=== PATIENT | female | born 1940 | race African-American/Black ===

== ENCOUNTER 2021-11-12 17:58 | Inpatient (IN) | payer MEDICARE ==
[~2021-11-12] VITALS: Ht 162.6 cm; Wt 81.1 kg
--- NOTE | 2021-11-12 18:08 | PHYS DOC ---
General Adult EDM: Chief Complaint: MECHANICAL FALL HPI: HPI: Patient is a 81 year old female brought in by EMS from home for multiple complaints. She reports that she has been lying in bed for about 1 week. She reports that just under a week ago she fell out of a recliner chair at home. She has right and left hip pain, right worse than left. She has been unable to walk for about 1 week. She reports that she normally walks on her own without difficulty. She denies head injury or loss of conscious. She denies any headache, neck pain, back pain. She denies chest pain, dyspnea, palpitations. She denies focal weakness. She is diffusely weak. She reports that he lives with one of her daughters, and her daughter has been placing her on a bedpan to help her urinate and have bowel movements. She is currently very visibly soiled, has dried feces on her clothing and shirt. She reports that she did not come to the ER sooner because she did not feel like she had to, and she had been in communication with a brother that lives out of state, apparently this brother told her it takes a while for muscle to heal, so she was trying to wait it out. The patient reports that she has high blood pressure and takes medicine for glaucoma. She is unable to tell me who her doctor is. She reports that she does not usually see a primary care physician regularly. She reports that she has not been in the hospital since her children were born. Her children are all adults. She is a relatively poor historian. There is no family here currently to provide any extra history at this time. Review of Systems: Review of Systems: Constitutional: Denies fever or chills. [] Eyes: Chronic vision problems, no acute visual deficit, no complete vision loss HENT: Denies nasal congestion or sore throat. [] Respiratory: Denies cough or shortness of breath. [] Cardiovascular: Denies chest pain, palpitations. Denies syncope. GI: Denies abdominal pain, nausea, vomiting, or diarrhea : Urinary incontinence. Denies dysuria, gross hematuria Musculoskeletal: Denies back pain or joint pain. Denies back pain. Integument: Denies rash. [] Neurologic: Denies headache, focal weakness or sensory changes. She denies head injury. She denies loss of consciousness. She denies syncope. Reports generalized, nonfocal motor weakness. She denies numbness or tingling. She denies dizziness or vertigo symptoms. Psychiatric: Denies depression or anxiety. [] Heart Score: C/O Chest Pain: No Risk Factors: Risk Factors: DM, Current or recent (<one month) smoker, HTN, HLP, family history of CAD, obesity. Risk Scores: Score 0 - 3: 2.5% MACE over next 6 weeks - Discharge Home Score 4 - 6: 20.3% MACE over next 6 weeks - Admit for Clinical Observation Score 7 - 10: 72.7% MACE over next 6 weeks - Early Invasive Strategies Allergies: Allergies: Allergies Coded Allergies Type Severity Reaction Last Updated Verified No Known Drug Allergies 11/12/21 No Physical Exam: PE: Constitutional: Well developed, well nourished, no acute distress, non-toxic appearance. [] HENT: Normocephalic, atraumatic, oropharynx is patent and clear, mucous me mbranes are tacky. TMs are clear bilaterally. External ears are normal bilaterally. Nares are patent clear without rhinorrhea epistaxis. Evidence of facial or oral trauma. No evidence of facial contusion, swelling, erythema. Eyes: PERRL, EOMI, conjunctiva normal, no discharge. Bilateral corneal opacities, right greater than left. Neck: Normal range of motion, no tenderness, supple, no stridor. No midline tenderness or step-offs. No meningismus. Trachea is midline. No JVD. Cardiovascular: Tachycardic, irregularly irregular, +2 dorsalis pedis and +2 radial pulses. Rhythm appears to be consistent with atrial fibrillation with rapid ventricular response Lungs & Thorax: No evidence of chest or thorax trauma. Equal chest rise. Lungs are clear to auscultation without rales, rhonchi or wheezes. Mildly diminished in bilateral bases. No tachypnea. No stridor. No evidence of distress Abdomen: Abdomen is obese, soft, nondistended, nontender to palpation. No palpable masses organomegaly. No evidence of abdominal or flank trauma. No abdominal or flank ecchymoses. Skin: Warm, dry, skin is relatively unkempt, relatively poor skin turgor. There is an intact blister type lesion on her right anterior lower leg. This is nontender Back: Markedly limited range of motion of the spine. No deformity. No midline tenderness or step-offs. Extremities: Pelvis is stable. Bilateral, symmetric nonpitting lower extremity edema. There is a intact blister type lesion on her right mid anterior lower leg. There is no tenderness, warmth or erythema. Painful passive range of motion of bilateral hips, right greater than left. No palpable step-offs or deformity right anterior knee is tender with markedly limited range of motion with passive and active right knee flexion. No ligamentous laxity is noted. No calf tenderness is noted. There is dried feces on her feet. Her toenails are incredibly long, thickened and unkempt, overgrowing the skin on her toes. Neurologic: She is awake, alert, oriented x3. Cranial nerves II through XII grossly intact. Bilateral table hand strength normal and equal bilaterally. Sensation is grossly intact. She demonstrates diffuse, symmetric generalized motor weakness. Bilateral lower extremities demonstrate symmetric lower extremity weakness with no ability to hold her legs up against gravity. No foot drop. Normal plantar flexion and dorsiflexion of bilateral feet and ankles. Psychologic: She is somewhat anxious but she is pleasant and overall cooperative. EKG: EKG: EKG is interpreted at 1840 Rhythm is atrial fibrillation with RVR Rate is 148 bpm [place] is normal Occasional PVCs Nonspecific T wave abnormalities diffusely No STEMI Radiology/Procedures: Radiology/Procedures: IMAGING REPORT Signed PATIENT: MORA MONTES ACCOUNT: [id number] : 1940 LOCATION: ER AGE: 81 SEX: F EXAM STATUS: PRE ER ORD. PHYSICIAN: BONNIE JACK DO REASON: fall, weakness PROCEDURE: CT HEAD AND CERVICAL SPINE WO Exam: CT head and cervical spine INDICATION: Fall, weakness TECHNIQUE: Sequential axial images through the head and cervical spine were obtained without the administration of IV contrast. Exposure: One or more of the following in the visualized dose reduction techniques were utilized for this examination: 1. Automated exposure control 2. Adjustment of the MA and/or KV according to patient size 3. Use of iterative of reconstructive technique Comparisons: None FINDINGS: Head: No focal parenchymal lesion or hemorrhage is identified. There is no midline shift or sulcal effacement. Moderate patchy hypodensity in the periventricular white matter. No acute vascular territory infarction is identified. Almeida-white distinction is preserved. The ventricular system is within normal limits without compression hydrocephalus. The basal cisterns are well maintained. The visualized portions of the paranasal sinuses and mastoid air cells are well- pneumatized. No acute fractures. Cervical spine: Straightening of cervical spine which may positional. Vertebral body heights are well-maintained. Fracture to the cervical spine is not identified. Multilevel spondylotic change in cervical spine with degenerative disc disease in the cervical spine, greatest at C3-C4, C4-C5 and C5-C6. Visualized paraspinal soft tissues are unremarkable. IMPRESSION: 1. Moderate small vessel schema change, technically age indeterminate without recent prior imaging. 2. Negative CT C-spine for acute traumatic injury. Electronically signed by: Umang Barrios MD (11/12/2021 7:06 PM) [facility] DICTATED and SIGNED BY: UMANG BARRIOS MD DATE: 11/12/211901 IMAGING REPORT Signed PATIENT: SRIKANTH MONTES ACCOUNT: [id number] : 1940 LOCATION: ER AGE: 81 SEX: F EXAM STATUS: REG ER ORD. PHYSICIAN: BONNIE JACK DO REASON: pain, fall PROCEDURE: KNEE RIGHT 3V EXAMINATION: XR KNEE 3 VIEWS_RT CLINICAL HISTORY: Right knee pain following fall. TECHNIQUE: XR KNEE 3 VIEWS_RT COMPARISON: None FINDINGS/ IMPRESSION: Moderate medial compartment narrowing. Patellofemoral compartment narrowing, incompletely evaluated. Tricompartmental small marginal osteophytes. No acute fracture. No definite joint effusion on the oblique lateral image. Electronically signed by: Berto Lane DO (11/12/2021 8:20 PM) [facility] DICTATED and SIGNED BY: BERTO LANE DO DATE: 11/12/212018 IMAGING REPORT Signed PATIENT: SRIKANTH MONTES ACCOUNT: [id number] : 1940 LOCATION: ER AGE: 81 SEX: F EXAM STATUS: REG ER ORD. PHYSICIAN: BONNIE JACK DO REASON: fall, weakness PROCEDURE: PORTABLE CHEST 1V EXAMINATION: XR CHEST 1V CLINICAL HISTORY: Chest pain following fall, weakness. EXAM DATE/TIME: 11/12/2021 7:51 PM COMPARISON: None FINDINGS: Lines, Tubes, and Devices: None. Cardiomediastinal Silhouette: Cardiomegaly. Lungs and Pleura: No evidence of focal airspace consolidation or pleural effusion. Right parahilar opacities favor vascular markings. Pulmonary vasculature unremarkable. Elevation right hemidiaphragm. Bones and Soft Tissues: Degenerative changes in the thoracic spine. IMPRESSION: No evidence of acute cardiopulmonary abnormality. Cardiomegaly Electronically signed by: Berto Lane DO (11/12/2021 8:18 PM) [facility] DICTATED and SIGNED BY: BERTO LANE DO DATE: 11/12/212015 IMAGING REPORT Signed PATIENT: SRIKANTH MONTES ACCOUNT: [id number] : 1940 LOCATION: ER AGE: 81 SEX: F EXAM STATUS: REG ER ORD. PHYSICIAN: BONNIE JACK DO REASON: fall, weakness PROCEDURE: HIP RIGHT 2V WITH PELVIS EXAMINATION: XR RIGHT HIP (WITH OR WITHOUT PELVIS) 2 VIEWS CLINICAL HISTORY: Right hip pain following fall. TECHNIQUE: XR RIGHT HIP (WITH OR WITHOUT PELVIS) 2 VIEWS COMPARISON: None FINDINGS/ IMPRESSION: Joint space alignment maintained in the right hip. Left hip unremarkable on limited evaluation. Pubic symphysis and SI joints maintained. Partially visualized lumbar degenerative changes. No acute fracture. Vascular calcifications. Electronically signed by: Berto Lane DO (11/12/2021 8:19 PM) [facility] DICTATED and SIGNED BY: BERTO LANE DO DATE: 11/12/212017 Course & Med Decision Making: Course & Med Decision Making Pertinent Labs and Imaging studies reviewed. (See chart for details) The patient is given a total of 20 mg of IV of diltiazem. Heart rate modestly improved, she is still in A. fib with RVR. She is given a diltiazem drip. IV fentanyl given for pain. IV fluid boluses are given. She is given oral aspirin and subcu Lovenox. I discussed the findings, differential diagnosis and plan of care with her. I have recommended hospitalization, cardiology consultation, she will require social media director consultation, most likely rehab as well. She verbalizes understanding, she is comfortable with the plan of care. She is accepted for admission by Dr. Plunkett. Emerita Disclaimer: Emerita Disclaimer: This electronic medical record was generated, in whole or in part, using a voice recognition dictation system. Departure Departure Impression: Primary Impression: Generalized weakness Additional Impressions: Atrial fibrillation with rapid ventricular response Lactic acidosis Rhabdomyolysis Qualified Codes: T79.6XXA - Traumatic ischemia of muscle, initial encounter Disposition: ADMITTED INPATIENT Admitting Physician: SUSSY (Dr. Plunkett) Condition: GUARDED GUERO,BONNIE Starla DO Nov 12, 2021 18:08
[2021-11-12] MEDS ORDERED: IV NORMAL SALINE 1000ML BAG 1,000 ML IV ONE ×2 (18:30→19:45)
[2021-11-12] MEDS ORDERED: fentaNYL PF VIAL 100 MCG/2 ML VIAL IVP ONE (18:30)
[2021-11-12 18:51] LABS: BASO % 0 % (0-3); EOS % 0 % (0-3); HEMATOCRIT 39.8 % (36.0-47.0); LYMPH # 0.3 x10^3/uL (1.0-4.8); LYMPH % 3 % (24-48); MEAN CORPUSCULAR HEMOGLOBIN 30 pg (25-35); MEAN CORPUSCULAR HGB CONC 33 g/dL (31-37); MEAN CORPUSCULAR VOLUME 91 fL (79-100); MONO # 0.4 x10^3/uL (0.0-1.1); MONO % 4 % (0-9); NEUT % 93 % (31-73); PLATELET COUNT 222 x10^3/uL (140-400); RED BLOOD COUNT 4.37 x10^6/uL (3.50-5.40); RED CELL DISTRIBUTION WIDTH 15.4 % (11.5-14.5); WHITE BLOOD COUNT 10.7 x10^3/uL (4.0-11.0)
[2021-11-12 19:00] LABS: CALCIUM 9.6 mg/dL (8.5-10.1); GFR 53.5; POTASSIUM 3.4 mmol/L (3.5-5.1)
--- NOTE | 2021-11-12 19:08 | RAD ---
Exam: CT head and cervical spine INDICATION: Fall, weakness TECHNIQUE: Sequential axial images through the head and cervical spine were obtained without the admi nistration of IV contrast. Exposure: One or more of the following in the visualized dose reduction techniques were utilized for this examination: 1. Automated exposure control 2. Adjustment of the MA and/or KV according to patient size 3. Use of iterative of reconstructive technique Comparisons: None FINDINGS: Head: No focal parenchymal lesion or hemorrhage is identified. There is no midline shift or sulcal effaceme nt. Moderate patchy hypodensity in the periventricular white matter. No acute vascular territory infarcti on is identified. Almeida-white distinction is preserved. The ventricular system is within normal limits without compression hydrocephalus. The basal cisterns are well maintained. The visualized portions of the paranasal sinuses and mastoid air cells are well-pneumatized. No acute fractures. Cervical spine: Straightening of cervical spine which may positional. Vertebral body heights are well-maintained. Fracture to the cervical spine is not identified. Multilevel spondylotic change in cervical spine with degenerative disc disease in the cervical spine, greatest at C3-C4, C4-C5 and C5-C6. Visualized paraspinal soft tissues are unremarkable. IMPRESSION: 1. Moderate small vessel schema change, technically age indeterminate without recent prior imaging. 2. Negative CT C-spine for acute traumatic injury. Electronically signed by: Umang Lantigua MD (11/12/2021 7:06 PM) [facility]
[2021-11-12 19:16] LABS: ALBUMIN 3.1 g/dL (3.4-5.0); ALBUMIN/GLOBULIN RATIO 0.7 (1.0-1.7); MAGNESIUM 1.9 mg/dL (1.8-2.4); TOTAL BILIRUBIN 2.4 mg/dL (0.2-1.0); TOTAL PROTEIN 7.6 g/dL (6.4-8.2)
[2021-11-12 19:31] LABS: % LYMPHS 4 % (24-48); % MONOS 3 % (0-10); % SEGS 93 % (35-66); PLT ESTIMATE ADEQUATE (ADEQUATE)
[2021-11-12 19:32] LABS: BURR CELLS PRESENT
[2021-11-12 19:57] LABS: BILIRUBIN,URINE SMALL (NEG); CLARITY,URINE CLOUDY; COLOR,URINE YELLOW; PH,URINE 5.5 (<5.0-8.0); PROTEIN,URINE 100 mg/dL (NEG-TRACE)
[2021-11-12 19:58] LABS: NITRITE,URINE NEGATIVE (NEG)
[2021-11-12 19:59] LABS: BACTERIA,URINE FEW /HPF (0-FEW); WBC,URINE TNTC /HPF (0-4)
--- NOTE | 2021-11-12 20:20 | RAD ---
EXAMINATION: XR CHEST 1V CLINICAL HISTORY: Chest pain following fall, weakness. EXAM DATE/TIME: 11/12/2021 7:51 PM COMPARISON: None FINDINGS: Lines, Tubes, and Devices: None. Cardiomediastinal Silhouette: Cardiomegaly. Lungs and Pleura: No evidence of focal airspace consolidation or pleural effusion. Right parahilar op acities favor vascular markings. Pulmonary vasculature unremarkable. Elevation right hemidiaphragm. Bones and Soft Tissues: Degenerative changes in the thoracic spine. IMPRESSION: No evidence of acute cardiopulmonary abnormality. Cardiomegaly Electronically signed by: Berto Yuen DO (11/12/2021 8:18 PM) [facility]
--- NOTE | 2021-11-12 20:22 | RAD ---
EXAMINATION: XR RIGHT HIP (WITH OR WITHOUT PELVIS) 2 VIEWS CLINICAL HISTORY: Right hip pain following fall. TECHNIQUE: XR RIGHT HIP (WITH OR WITHOUT PELVIS) 2 VIEWS COMPARISON: None FINDINGS/ IMPRESSION: Joint space alignment maintained in the right hip. Left hip unremarkable on limited evaluation. Pubic symphysis and SI joints maintained. Partially visualized lumbar degenerative changes. No acute fract ure. Vascular calcifications. Electronically signed by: Berto Yuen DO (11/12/2021 8:19 PM) [facility]
--- NOTE | 2021-11-12 20:23 | RAD ---
EXAMINATION: XR KNEE 3 VIEWS_RT CLINICAL HISTORY: Right knee pain following fall. TECHNIQUE: XR KNEE 3 VIEWS_RT COMPARISON: None FINDINGS/ IMPRESSION: Moderate medial compartment narrowing. Patellofemoral compartment narrowing, incompletely evaluated. Tricompartmental small marginal osteophytes. No acute fracture. No definite joint effusion on the obl ique lateral image. Electronically signed by: Berto Yuen DO (11/12/2021 8:20 PM) [facility]
[2021-11-12] MEDS ORDERED: ASPIRIN ENTERIC COATED 325 MG TABLET.DR. PO ONE (20:45)
[2021-11-12 21:30] VITALS: BP 140/76
[2021-11-12 22:52] VITALS: BP 154/90
[2021-11-13 02:43] VITALS: BP 101/60
--- NOTE | 2021-11-13 03:13 | NUR ---
Patient arrived to unit at approx 2140 accompanied by CARMELINA pelayo. Patient reports no pain at this time. Pt states that she fell on 11/09 and has not been able to bear weight. Pt has unkept appearance, fecal matter on feet and back. Toe nails long with fecal matter under them. Pt states "my daughter has been doing the best she can". Pt has wound on buttock. Intact blister on right goins. scratch on left buttock. and yeast with open spot under left breast. Bath given. special bed surface ordered - P500. Wound care consulted, photos placed in chart. Pt is poor historian, unable to give full medical history. Pt doesn't remember name of pharmacy or medications that she takes- states "I know i take something for blood pressure and eye drops" oriented patient to unit, bed in low locked position, bed alarm set, call light in reach. Will continue to monitor.
[2021-11-13] MEDS ORDERED: dilTIAZem HCL 125 MG in IV DEXTROSE 5% 100ML 100 ML IV PRN (05:45)
[2021-11-13 07:00] VITALS: BP 155/80
--- NOTE | 2021-11-13 07:56 | EKG ---
[facility] [address] [place] [address] Test Date: 2021-11-12 Test Time: 18:33:33 Pat Name: MORA MONTES Department: Room: [facility] Gender: F [employer] Layer [employer]per: : 1940 Requested By: BONNIE JACK Order Number: [id number] Reading MD: Harris Mary Measurements Intervals [place] Rate: 148 P: AK: QRS: 10 QRSD: 80 T: 185 QT: 280 QTc: 444 Interpretive Statements ATRIAL FIB[place]AT[place] WITH RVR Electronically Signed On 11-29-2021 22:07:59 CDT by Harris Mary
[2021-11-13] MEDS: NYSTATIN TOPICAL POWDER 15GM BOTTLE. TP SCH ×2 (09:37→21:00)
[2021-11-13] MEDS ORDERED: ACETAMINOPHEN 325 MG TABLET. PO PRN (09:45)
[2021-11-13] MEDS ORDERED: HYDROcodone/APAP 5/325MG 1 TAB TABLET PO PRN (09:45)
[2021-11-13] MEDS ORDERED: MAG HYDROX/ALUMINUM HYD/SIMETH 30 ML ORAL.SUSP PO PRN (09:45)
[2021-11-13] MEDS ORDERED: MORPHINE SULFATE 2 MG/ML INJ. IV PRN (09:45)
[2021-11-13] MEDS ORDERED: ZOLPIDEM 5 MG TABLET. PO PRN (09:45)
[2021-11-13] MEDS ORDERED: ONDANSETRON PF 4 MG/2 ML VIAL. IVP PRN (09:45)
[2021-11-13] MEDS ORDERED: MAGNESIUM HYDROXIDE 2,400 MG/30 ML ORAL.SUSP. PO PRN (09:45)
--- NOTE | 2021-11-13 09:48 | PDOC1 ---
History and Physical Date of Admission Date of Admission DATE: 11/13/21 TIME: 09:48 Identification/Chief Complaint Chief Complaint Fall Source Source: Patient History of Present Illness History of Present Illness Patient is a 81 year old female past medical history HTN, glaucoma, presents to ED for evaluation of hip pain after a fall at home. About a week ago she fell out of her recliner and since that time she has been complaining of hip pain and worsening weakness. She lives at home alone but her 2 daughters check on her frequently. She reports worsening weakness over the past week after her fall. Reportedly patient was covered in urine and feces upon EMS arrival. In ED she complains of bilateral hip pain, but no evidence of fracture on imaging. While in the ED she went into A. fib with RVR, and was placed on a diltiazem drip. Labs on admission showed potassium 3.4, lactic acid 2.6, magnesium 1.9, AST 67, ALT 31, CK 1213, BNP 2813, high-sensitivity troponin 68. Will admit patient w ith cardiology consult for further medical management. Past Medical History Past Medical History Glaucoma Cardiovascular: HTN Past Surgical History Past Surgical History: Family History Family History A. fib, HTN Social History Smoke: No ALCOHOL: none Drugs: None Current Problem List Problem List Problems Medical Problems: (1) Atrial fibrillation with rapid ventricular response Status: Acute (2) Generalized weakness Status: Acute (3) Lactic acidosis Status: Acute (4) Rhabdomyolysis Status: Acute Current Medications Current Medications Current Medications Sodium Chloride 1,000 ml @ 1,000 mls/hr 1X ONCE IV Last administered on 11/12/21at 19:00; Start 11/12/21 at 18:30; Stop 11/12/21 at 19:29; Status DC Fentanyl Citrate (Fentanyl 2ml Vial) 50 mcg 1X ONCE IVP Last administered on 11/12/21at 19:21; Start 11/12/21 at 18:30; Stop 11/12/21 at 18:33; Status DC Diltiazem HCl (Cardizem Iv Push) 10 mg 1X ONCE IVP Last administered on 11/12/21at 19:05; Start 11/12/21 at 18:45; Stop 11/12/21 at 18:46; Status DC Diltiazem HCl (Cardizem Iv Push) 10 mg 1X ONCE IVP Last administered on 11/12/21at 19:49; Start 11/12/21 at 19:30; Stop 11/12/21 at 19:31; Status DC Sodium Chloride 1,000 ml @ 1,000 mls/hr 1X ONCE IV Last administered on 11/12/21at 20:02; Start 11/12/21 at 19:45; Stop 11/12/21 at 20:44; Status DC Diltiazem HCl 125 mg/Sodium Chloride 125 ml @ 5 mls/hr CONT PRN IV PER PROTOCOL Last administered on 11/12/21at 20:04; Start 11/12/21 at 19:45; Stop 11/13/21 at 05:43; Status DC Aspirin (Ecotrin) 325 mg 1X ONCE PO Last administered on 11/12/21at 21:13; Start 11/12/21 at 20:45; Stop 11/12/21 at 20:47; Status DC Enoxaparin Sodium (Lovenox 80mg Syringe) 80 mg 1X ONCE SQ Last administered on 11/12/21at 21:13; Start 11/12/21 at 20:45; Stop 11/12/21 at 20:47; Status DC Diltiazem HCl 125 mg/Dextrose 125 ml @ 5 mls/hr CONT PRN IV PER PROTOCOL Last administered on 11/13/21at 06:01; Start 11/13/21 at 05:45 Nystatin (Nystop) 1 santo BID TP Last administered on 11/13/21at 09:37; Start 11/13/21 at 09:00 Ondansetron HCl (Zofran) 4 mg PRN Q6HRS PRN IVP NAUSEA/VOMITING; Start 11/13/21 at 09:45 Al Hydroxide/Mg Hydroxide (Mylanta Plus Xs) 30 ml PRN Q3HRS PRN PO HEARTBURN / GAS; Start 11/13/21 at 09:45 Zolpidem Tartrate (Ambien) 5 mg PRN QHS PRN PO INSOMNIA, MAY REPEAT IN 1HR; Start 11/13/21 at 09:45 Morphine Sulfate (Morphine Sulfate) 2 mg PRN Q1HR PRN IV PAIN; Start 11/13/21 at 09:45 Acetaminophen/ Hydrocodone Bitart (Lortab 5/325) 1 tab PRN Q4HRS PRN PO MILD PAIN 1-3; Start 11/13/21 at 09:45 Acetaminophen (Tylenol) 650 mg PRN Q6HRS PRN PO Headaches, Temp > 101.5F; Start 11/13/21 at 09:45; Status UNV Magnesium Hydroxide (Milk Of Magnesia) 2,400 mg PRN Q12HR PRN PO CONSTIPATION; Start 11/13/21 at 09:45; Status UNV Heparin Sodium (Porcine) (Heparin Sodium) 5,000 unit Q12HR SQ ; Start 11/13/21 at 21:00; Status UNV Allergies Allergies: Coded Allergies: No Known Drug Allergies (Unverified , 11/12/21) ROS Review of System GENERAL: Lower extremity weakness. No history of weight change or fevers. SKIN: No bruising, hair changes or rashes. EYES: No blurred, double or loss of vision. NOSE AND THROAT: No history of nosebleeds, hoarseness or sore throat. HEART: Denies chest pain, denies palpitations. LUNGS: Denies cough, hemoptysis, wheezing or shortness of breath. GASTROINTESTINAL: Denies nausea, vomiting, abdominal pain. GENITOURINARY: Denies dysuria, frequency, urgency, hematuria. NEUROLOGIC: Denies history of numbness, tingling, tremor or weakness. PSYCHIATRIC: Denies anxiety, denies depression. ENDOCRINE: No history of heat or cold intolerance, polyuria or polydipsia. EXTREMITIES: Musculoskeletal weakness in her bilateral legs and hip pain. Denies stiffness. Physical Exam Physical Exam General: Alert, Oriented X3, Cooperative, No acute distress HEENT: PERRLA, EOMI Lungs: Clear to auscultation, Normal air movement Heart: RRR, no murmurs Cardiovascular: Tachycardic, irregularly irregular. S1, S2. Abdomen: Normal bowel sounds, Soft, No tenderness Extremities: Strength 1/5 in bilateral extremities. +1 edema bilaterally. No clubbing, No cyanosis Skin: No rashes, No significant lesion Neuro: Normal speech, Normal tone, Sensation intact Psych/Mental Status: Mental status NL, Mood NL Vitals Vitals Vital Signs Date Time Temp Pulse Resp B/P (MAP) Pulse Ox O2 Delivery O2 Flow Rate FiO2 11/13/21 07:00 98.3 91 18 155/80 (105) Room Air 98.3 11/13/21 02:43 97 11/13/21 00:24 2.0 Labs Labs Laboratory Tests Test 11/12/21 18:30 11/12/21 18:50 11/12/21 21:40 White Blood Count 10.7 x10^3/uL (4.0-11.0) Red Blood Count 4.37 x10^6/uL (3.50-5.40) Hemoglobin 13.0 g/dL (12.0-15.5) Hematocrit 39.8 % (36.0-47.0) Mean Corpuscular Volume 91 fL (79-100) Mean Corpuscular Hemoglobin 30 pg (25-35) Mean Corpuscular Hemoglobin Concent 33 g/dL (31-37) Red Cell Distribution Width 15.4 % (11.5-14.5) Platelet Count 222 x10^3/uL (140-400) Neutrophils (%) (Auto) 93 % (31-73) Lymphocytes (%) (Auto) 3 % (24-48) Monocytes (%) (Auto) 4 % (0-9) Eosinophils (%) (Auto) 0 % (0-3) Basophils (%) (Auto) 0 % (0-3) Neutrophils # (Auto) 10.0 x10^3/uL (1.8-7.7) Lymphocytes # (Auto) 0.3 x10^3/uL (1.0-4.8) Monocytes # (Auto) 0.4 x10^3/uL (0.0-1.1) Eosinophils # (Auto) 0.0 x10^3/uL (0.0-0.7) Basophils # (Auto) 0.0 x10^3/uL (0.0-0.2) Segmented Neutrophils % 93 % (35-66) Lymphocytes % 4 % (24-48) Monocytes % 3 % (0-10) Platelet Estimate Adequate (ADEQUATE) Suly Cells Present Sodium Level 139 mmol/L (136-145) Potassium Level 3.4 mmol/L (3.5-5.1) Chloride Level 103 mmol/L (98-107) Carbon Dioxide Level 27 mmol/L (21-32) Anion Gap 9 (6-14) Blood Urea Nitrogen 20 mg/dL (7-20) Creatinine 1.0 mg/dL (0.6-1.0) Estimated GFR (Cockcroft-Gault) 53.5 BUN/Creatinine Ratio 20 (6-20) Glucose Level 152 mg/dL (70-99) Lactic Acid Level 2.6 mmol/L (0.4-2.0) 1.7 mmol/L (0.4-2.0) Calcium Level 9.6 mg/dL (8.5-10.1) Phosphorus Level 3.0 mg/dL (2.6-4.7) Magnesium Level 1.9 mg/dL (1.8-2.4) Total Bilirubin 2.4 mg/dL (0.2-1.0) Aspartate Amino Transf (AST/SGOT) 67 U/L (15-37) Alanine Aminotransferase (ALT/SGPT) 31 U/L (14-59) Alkaline Phosphatase 47 U/L (46-116) Creatine Kinase 1213 U/L (26-192) Troponin I High Sensitivity 68 ng/L (4-50) VE-Fvc-N-Type Natriuretic Peptide 2813 pg/mL (0-449) Total Protein 7.6 g/dL (6.4-8.2) Albumin 3.1 g/dL (3.4-5.0) Albumin/Globulin Ratio 0.7 (1.0-1.7) Urine Collection Type U cath Urine Color Yellow Urine Clarity Cloudy Urine pH 5.5 (<5.0-8.0) Urine Specific [place] 1.015 (1.000-1.030) Urine Protein 100 mg/dL (NEG-TRACE) Urine Glucose (UA) Negative mg/dL (NEG) Urine Ketones (Stick) 15 mg/dL (NEG) Urine Blood Moderate (NEG) Urine Nitrite Negative (NEG) Urine Bilirubin Small (NEG) Urine Urobilinogen Dipstick 2.0 mg/dL (0.2 mg/dL) Urine Leukocyte Esterase Large (NEG) Urine RBC 11-20 /HPF (0-2) Urine WBC Tntc /HPF (0-4) Urine Squamous Epithelial Cells Occ /LPF Urine Bacteria Few /HPF (0-FEW) Laboratory Tests Test 11/12/21 18:30 11/12/21 18:50 11/12/21 21:40 White Blood Count 10.7 x10^3/uL (4.0-11.0) Red Blood Count 4.37 x10^6/uL (3.50-5.40) Hemoglobin 13.0 g/dL (12.0-15.5) Hematocrit 39.8 % (36.0-47.0) Mean Corpuscular Volume 91 fL (79-100) Mean Corpuscular Hemoglobin 30 pg (25-35) Mean Corpuscular Hemoglobin Concent 33 g/dL (31-37) Red Cell Distribution Width 15.4 % (11.5-14.5) Platelet Count 222 x10^3/uL (140-400) Neutrophils (%) (Auto) 93 % (31-73) Lymphocytes (%) (Auto) 3 % (24-48) Monocytes (%) (Auto) 4 % (0-9) Eosinophils (%) (Auto) 0 % (0-3) Basophils (%) (Auto) 0 % (0-3) Neutrophils # (Auto) 10.0 x10^3/uL (1.8-7.7) Lymphocytes # (Auto) 0.3 x10^3/uL (1.0-4.8) Monocytes # (Auto) 0.4 x10^3/uL (0.0-1.1) Eosinophils # (Auto) 0.0 x10^3/uL (0.0-0.7) Basophils # (Auto) 0.0 x10^3/uL (0.0-0.2) Segmented Neutrophils % 93 % (35-66) Lymphocytes % 4 % (24-48) Monocytes % 3 % (0-10) Platelet Estimate Adequate (ADEQUATE) Suly Cells Present Sodium Level 139 mmol/L (136-145) Potassium Level 3.4 mmol/L (3.5-5.1) Chloride Level 103 mmol/L (98-107) Carbon Dioxide Level 27 mmol/L (21-32) Anion Gap 9 (6-14) Blood Urea Nitrogen 20 mg/dL (7-20) Creatinine 1.0 mg/dL (0.6-1.0) Estimated GFR (Cockcroft-Gault) 53.5 BUN/Creatinine Ratio 20 (6-20) Glucose Level 152 mg/dL (70-99) Lactic Acid Level 2.6 mmol/L (0.4-2.0) 1.7 mmol/L (0.4-2.0) Calcium Level 9.6 mg/dL (8.5-10.1) Phosphorus Level 3.0 mg/dL (2.6-4.7) Magnesium Level 1.9 mg/dL (1.8-2.4) Total Bilirubin 2.4 mg/dL (0.2-1.0) Aspartate Amino Transf (AST/SGOT) 67 U/L (15-37) Alanine Aminotransferase (ALT/SGPT) 31 U/L (14-59) Alkaline Phosphatase 47 U/L (46-116) Creatine Kinase 1213 U/L (26-192) Troponin I High Sensitivity 68 ng/L (4-50) QE-Djq-N-Type Natriuretic Peptide 2813 pg/mL (0-449) Total Protein 7.6 g/dL (6.4-8.2) Albumin 3.1 g/dL (3.4-5.0) Albumin/Globulin Ratio 0.7 (1.0-1.7) Urine Collection Type U cath Urine Color Yellow Urine Clarity Cloudy Urine pH 5.5 (<5.0-8.0) Urine Specific [place] 1.015 (1.000-1.030) Urine Protein 100 mg/dL (NEG-TRACE) Urine Glucose (UA) Negative mg/dL (NEG) Urine Ketones (Stick) 15 mg/dL (NEG) Urine Blood Moderate (NEG) Urine Nitrite Negative (NEG) Urine Bilirubin Small (NEG) Urine Urobilinogen Dipstick 2.0 mg/dL (0.2 mg/dL) Urine Leukocyte Esterase Large (NEG) Urine RBC 11-20 /HPF (0-2) Urine WBC Tntc /HPF (0-4) Urine Squamous Epithelial Cells Occ /LPF Urine Bacteria Few /HPF (0-FEW) Images Images IMAGING REPORT Signed PATIENT: MORA MONTES ACCOUNT: [id number] : 1940 LOCATION: ER AGE: 81 SEX: F EXAM STATUS: PRE ER ORD. PHYSICIAN: BONNIE JACK DO REASON: fall, weakness PROCEDURE: CT HEAD AND CERVICAL SPINE WO Exam: CT head and cervical spine INDICATION: Fall, weakness TECHNIQUE: Sequential axial images through the head and cervical spine were obtained without the administration of IV contrast. Exposure: One or more of the following in the visualized dose reduction techniques were utilized for this examination: 1. Automated exposure control 2. Adjustment of the MA and/or KV according to patient size 3. Use of iterative of reconstructive technique Comparisons: None FINDINGS: Head: No focal parenchymal lesion or hemorrhage is identified. There is no midline shift or sulcal effacement. Moderate patchy hypodensity in the periventricular white matter. No acute vascular territory infarction is identified. Almeida-white distinction is preserved. The ventricular system is within normal limits without compression hydrocephalus. The basal cisterns are well maintained. The visualized portions of the paranasal sinuses and mastoid air cells are well- pneumatized. No acute fractures. Cervical spine: Straightening of cervical spine which may positional. Vertebral body heights are well-maintained. Fracture to the cervical spine is not identified. Multilevel spondylotic change in cervical spine with degenerative disc disease in the cervical spine, greatest at C3-C4, C4-C5 and C5-C6. Visualized paraspinal soft tissues are unremarkable. IMPRESSION: 1. Moderate small vessel schema change, technically age indeterminate without recent prior imaging. 2. Negative CT C-spine for acute traumatic injury. Electronically signed by: Umang Barrios MD (11/12/2021 7:06 PM) MEENA DICTATED and SIGNED BY: UMANG BARRIOS MD DATE: 11/12/211901 IMAGING REPORT Signed PATIENT: SRIKANTH MONTES ACCOUNT: [id number] : 1940 LOCATION: ER AGE: 81 SEX: F EXAM STATUS: REG ER ORD. PHYSICIAN: BONNIE JACK DO REASON: pain, fall PROCEDURE: KNEE RIGHT 3V EXAMINATION: XR KNEE 3 VIEWS_RT CLINICAL HISTORY: Right knee pain following fall. TECHNIQUE: XR KNEE 3 VIEWS_RT COMPARISON: None FINDINGS/ IMPRESSION: Moderate medial compartment narrowing. Patellofemoral compartment narrowing, incompletely evaluated. Tricompartmental small marginal osteophytes. No acute f racture. No definite joint effusion on the oblique lateral image. Electronically signed by: Geoff Lane DO (11/12/2021 8:20 PM) YAHAIRA DICTATED and SIGNED BY: GEOFF LANE DO DATE: 11/12/212018 IMAGING REPORT Signed PATIENT: SRIKANTH MONTES ACCOUNT: [id number] : 1940 LOCATION: ER AGE: 81 SEX: F EXAM STATUS: REG ER ORD. PHYSICIAN: BONNIE JACK DO REASON: fall, weakness PROCEDURE: PORTABLE CHEST 1V EXAMINATION: XR CHEST 1V CLINICAL HISTORY: Chest pain following fall, weakness. EXAM DATE/TIME: 11/12/2021 7:51 PM COMPARISON: None FINDINGS: Lines, Tubes, and Devices: None. Cardiomediastinal Silhouette: Cardiomegaly. Lungs and Pleura: No evidence of focal airspace consolidation or pleural effusion. Right parahilar opacities favor vascular markings. Pulmonary vasculature unremarkable. Elevation right hemidiaphragm. Bones and Soft Tissues: Degenerative changes in the thoracic spine. IMPRESSION: No evidence of acute cardiopulmonary abnormality. Cardiomegaly Electronically signed by: Geoff Lane DO (11/12/2021 8:18 PM) YAHAIRA DICTATED and SIGNED BY: GEOFF LANE DO DATE: 11/12/212015 IMAGING REPORT Signed PATIENT: SRIKANTH MONTES ACCOUNT: [id number] : 1940 LOCATION: ER AGE: 81 SEX: F EXAM STATUS: REG ER ORD. PHYSICIAN: BONNIE JACK DO REASON: fall, weakness PROCEDURE: HIP RIGHT 2V WITH PELVIS EXAMINATION: XR RIGHT HIP (WITH OR WITHOUT PELVIS) 2 VIEWS CLINICAL HISTORY: Right hip pain following fall. TECHNIQUE: XR RIGHT HIP (WITH OR WITHOUT PELVIS) 2 VIEWS COMPARISON: None FINDINGS/ IMPRESSION: Joint space alignment maintained in the right hip. Left hip unremarkable on limited evaluation. Pubic symphysis and SI joints maintained. Partially visualized lumbar degenerative changes. No acute fracture. Vascular calcifications. Electronically signed by: Geoff Lane DO (11/12/2021 8:19 PM) DOMONIQUESHIREEN VTE Prophylaxis Ordered VTE Prophylaxis Devices: No VTE Pharmacological Prophylaxi: Yes Assessment/Plan Assessment/Plan A. fib with RVR Rhabdomyolysis Lactic acidosis Physical debility Gram-negative jamil bacteremia Plan: Continue diltiazem infusion Consult cardiology Gram-negative rods in 1 out of 4 bottles. Suspect contamination given unimpressive UA and reports about patient was covered in her own urine and feces upon arrival. Will consult ID. IV fluids Patient on Benicar at home; will continue losartan while in this hospital. PT/OT FEN - Cardiac diet PPX - Heparin FULL CODE Dispo - inpatient for above; surrogatedecision maker is daughter (Eloina Montes) Justifications for Admission General Conditions Poss tachycardia?: Yes Justification for admission: Patient has tachycardia (> 100 beats per minute) which is not readily corrected by appropriate treatment within 12 to 24 hours. Other Justification JULIÁN NIELSON MD Nov 13, 2021 09:48
[2021-11-13] MEDS ORDERED: HEPARIN for SUB-Q USE 5,000 UNIT/ML VIAL. SQ SCH (10:00)
[2021-11-13 11:00] VITALS: BP 125/80
--- NOTE | 2021-11-13 11:20 | PDOC2 ---
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 Reports that she was sleeping on a chair and fell over but no injuries sustained. She then called her daughter and EMS came and noted that she was tachycardic. UIpon admission to ED it was confirmed that is on AFIB RVR which is a new finding for her. Denies any prior CAD, VTE or arrhythmias. No r ecent falls prior to this and no hx of bleeding issues or anemia. She has not seen a automotive worker foreman and reports basically she is healthy and does have HTN and takes med and also has glaucoma and takes eye drops. No hx of seizures no recent infection. Denies chest pain, intermittent palpitations, SOA and walks daily about 3 miles and no decrease tolerance. No fever or chills, nausea vomiting or diarrhea and she is vaccinated for covid-19. PAST MEDICAL HISTORY Cardiovascular: HTN ENT: Other (glaucoma, legally blind) PAST SURGICAL HISTORY Past Surgical History: Cataract Removal, (x1) FAMILY HISTORY Family History: Coronary Artery Disease (mother) SOCIAL HISTORY Smoke: No ALCOHOL: none Drugs: None Lives: Alone CURRENT MEDICATIONS CURRENT MEDICATIONS Current Medications Medications (Trade) Dose Ordered Sig/Yahaira Route PRN Reason Start Time Stop Time Status Last Admin Dose Admin Sodium Chloride 1,000 ml @ 1,000 mls/hr 1X ONCE IV 11/12/21 18:30 11/12/21 19:29 DC 11/12/21 19:00 Fentanyl Citrate (Fentanyl 2ml Vial) 50 mcg 1X ONCE IVP 11/12/21 18:30 11/12/21 18:33 DC 11/12/21 19:21 Diltiazem HCl (Cardizem Iv Push) 10 mg 1X ONCE IVP 11/12/21 18:45 11/12/21 18:46 DC 11/12/21 19:05 Diltiazem HCl (Cardizem Iv Push) 10 mg 1X ONCE IVP 11/12/21 19:30 11/12/21 19:31 DC 11/12/21 19:49 Sodium Chloride 1,000 ml @ 1,000 mls/hr 1X ONCE IV 11/12/21 19:45 11/12/21 20:44 DC 11/12/21 20:02 Diltiazem HCl 125 mg/Sodium Chloride 125 ml @ 5 mls/hr CONT PRN IV PER PROTOCOL 11/12/21 19:45 11/13/21 05:43 DC 11/12/21 20:04 Aspirin (Ecotrin) 325 mg 1X ONCE PO 11/12/21 20:45 11/12/21 20:47 DC 11/12/21 21:13 Enoxaparin Sodium (Lovenox 80mg Syringe) 80 mg 1X ONCE SQ 11/12/21 20:45 11/12/21 20:47 DC 11/12/21 21:13 Diltiazem HCl 125 mg/Dextrose 125 ml @ 5 mls/hr CONT PRN IV PER PROTOCOL 11/13/21 05:45 11/13/21 06:01 Nystatin (Nystop) 1 santo BID TP 11/13/21 09:00 11/13/21 09:37 ALLERGIES ALLERGIES: Coded Allergies: No Known Drug Allergies (Unverified , 11/12/21) ROS Review of System 14 point ROS evaluated with pertinent positives noted per HPI PHYSICAL EXAM General: Alert, Oriented X3, Cooperative, No acute distress HEENT: Atraumatic, Mucous membr. moist/pink, Other (legally blind) Lungs: Other (fine basilar crackles) Heart: Other (3/6 systolic murmur to KORINA border, AFIB RVR) Abdomen: Soft, No tenderness Extremities: No cyanosis, Other (1+ bilateral LE pitting edema) Skin: No breakdown, No significant lesion Neuro: Normal speech, Sensation intact Psych/Mental Status: Mental status NL, Mood NL MUSCULOSKELETAL: Osteoarthritic changes both hands VITALS/I&O VITALS/I&O: Vital Signs Date Time Temp Pulse Resp B/P (MAP) Pulse Ox O2 Delivery O2 Flow Rate FiO2 11/13/21 07:00 98.3 91 18 155/80 (105) Room Air 98.3 11/13/21 02:43 97 11/13/21 00:24 2.0 I & O 11/12/21 11/12/21 11/13/21 15:00 23:00 07:00 Intake Total 2000 ml 0 ml Balance 2000 ml 0 ml LABS Lab: Laboratory Tests Test 11/12/21 18:30 11/12/21 18:50 11/12/21 21:40 White Blood Count 10.7 x10^3/uL (4.0-11.0) Red Blood Count 4.37 x10^6/uL (3.50-5.40) Hemoglobin 13.0 g/dL (12.0-15.5) Hematocrit 39.8 % (36.0-47.0) Mean Corpuscular Volume 91 fL (79-100) Mean Corpuscular Hemoglobin 30 pg (25-35) Mean Corpuscular Hemoglobin Concent 33 g/dL (31-37) Red Cell Distribution Width 15.4 % (11.5-14.5) H Platelet Count 222 x10^3/uL (140-400) Neutrophils (%) (Auto) 93 % (31-73) H Lymphocytes (%) (Auto) 3 % (24-48) L Monocytes (%) (Auto) 4 % (0-9) Eosinophils (%) (Auto) 0 % (0-3) Basophils (%) (Auto) 0 % (0-3) Neutrophils # (Auto) 10.0 x10^3/uL (1.8-7.7) H Lymphocytes # (Auto) 0.3 x10^3/uL (1.0-4.8) L Monocytes # (Auto) 0.4 x10^3/uL (0.0-1.1) Eosinophils # (Auto) 0.0 x10^3/uL (0.0-0.7) Basophils # (Auto) 0.0 x10^3/uL (0.0-0.2) Segmented Neutrophils % 93 % (35-66) H Lymphocytes % 4 % (24-48) L Monocytes % 3 % (0-10) Platelet Estimate Adequate (ADEQUATE) Suly Cells Present Sodium Level 139 mmol/L (136-145) Potassium Level 3.4 mmol/L (3.5-5.1) L Chloride Level 103 mmol/L (98-107) Carbon Dioxide Level 27 mmol/L (21-32) Anion Gap 9 (6-14) Blood Urea Nitrogen 20 mg/dL (7-20) Creatinine 1.0 mg/dL (0.6-1.0) Estimated GFR (Cockcroft-Gault) 53.5 BUN/Creatinine Ratio 20 (6-20) Glucose Level 152 mg/dL (70-99) H Lactic Acid Level 2.6 mmol/L (0.4-2.0) H 1.7 mmol/L (0.4-2.0) Calcium Level 9.6 mg/dL (8.5-10.1) Phosphorus Level 3.0 mg/dL (2.6-4.7) Magnesium Level 1.9 mg/dL (1.8-2.4) Total Bilirubin 2.4 mg/dL (0.2-1.0) H Aspartate Amino Transferase (AST) 67 U/L (15-37) H Alanine Aminotransferase (ALT) 31 U/L (14-59) Alkaline Phosphatase 47 U/L (46-116) Creatine Kinase 1213 U/L (26-192) H Troponin I High Sensitivity 68 ng/L (4-50) H BN-Vdj-U-Type Natriuretic Peptide 2813 pg/mL (0-449) H Total Protein 7.6 g/dL (6.4-8.2) Albumin 3.1 g/dL (3.4-5.0) L Albumin/Globulin Ratio 0.7 (1.0-1.7) L Urine Collection Type U cath Urine Color Yellow Urine Clarity Cloudy Urine pH 5.5 (<5.0-8.0) Urine Specific [place] 1.015 (1.000-1.030) Urine Protein 100 mg/dL (NEG-TRACE) Urine Glucose (UA) Negative mg/dL (NEG) Urine Ketones (Stick) 15 mg/dL (NEG) Urine Blood Moderate (NEG) Urine Nitrite Negative (NEG) Urine Bilirubin Small (NEG) Urine Urobilinogen Dipstick 2.0 mg/dL (0.2 mg/dL) Urine Leukocyte Esterase Large (NEG) Urine RBC 11-20 /HPF (0-2) Urine WBC Tntc /HPF (0-4) Urine Squamous Epithelial Cells Occ /LPF Urine Bacteria Few /HPF (0-FEW) Laboratory Tests 11/12/21 18:30 Laboratory Tests 11/12/21 18:30 ASSESSMENT/PLAN ASSESSMENT/PLAN 1. AFIB RVR: new 2. HTN: controlled 3. Hyperglycemia 4. Nontraumatic mechanical fall: denies syncopal event, was asleep sitting and f ell over from chair 5. Possible UTI: per PCP 6. Rhabdomyolysis 7. Glaucoma: legally blind 8. Diastolic CHF: clinically compensated Recommendations 1. Start on metoprolol. Dig IV x1. DC cardizem drip. Start on eliquis for stroke prevention 2. outpt CVN if remains in AFIB 3. TSH, A1C, FLP, TTE, CK, BMP and Mg 4. Replace K. IVF have been given KOKO SANTANA MD 11/13/21 1750: CARDIAC CONSULT ASSESSMENT/PLAN ASSESSMENT/PLAN Patient seen and examined I agree with our nurse practitioners assessment and plan. AFIB RVR: new. Starting on beta-blockers with digoxin IV as needed. Will discontinue IV Cardizem. Start Eliquis. Echo pending. HTN: controlled Hyperglycemia Nontraumatic mechanical fall: denies syncopal event, was asleep sitting and fell over from chair Possible UTI: per PCP Rhabdomyolysis Glaucoma: legally blind Diastolic CHF: clinically compensated. Replacing K. Monitoring lab. PAM WRIGHT APRN Nov 13, 2021 11:20 KOKO SANTANA MD Nov 13, 2021 17:50
[2021-11-13 11:26] LABS: CALCIUM 8.5 mg/dL (8.5-10.1); CREATININE 1.2 mg/dL (0.6-1.0); GFR 52.4
[2021-11-13 11:27] LABS: CHOLESTEROL/HDL RATIO 2.8
[2021-11-13] MEDS: LOSARTAN POTASSIUM 25 MG TABLET. PO SCH (11:30)
[2021-11-13] MEDS ORDERED: DIGOXIN IV 500 MCG/2 ML AMPUL. IV ONE (11:30)
[2021-11-13] MEDS ORDERED: POTASSIUM CHLORIDE 20 MEQ TABLET.ER. PO ONE (11:30)
[2021-11-13] MEDS ORDERED: METOPROLOL TART IMMED RELEASE 25 MG TABLET. PO ONE (11:30)
[2021-11-13] MEDS: APIXABAN 5 MG TABLET. PO SCH ×2 (12:42→21:19)
[2021-11-13] MEDS: cefTRIAXone IV Push 2 GM VIAL. IVP SCH (13:50)
--- NOTE | 2021-11-13 13:52 | CONS ---
DATE OF CONSULTATION: 11/13/2021 REQUESTING PHYSICIAN: Dr. Sanford. REASON FOR CONSULTATION: Gram-negative jamil bacteremia. HISTORY OF PRESENT ILLNESS: This is a 81-year-old -[place] female who lives by herself. She fell and could not get up. The patient was unable to walk, some hip pain and weakness. The patient eventually came in. The patient did not have any fever and white count was normal and BUN and creatinine is 24 and 1.2 with lactic acid 2.6. The patient's urinalysis showed too numerous to count wbc's. Blood culture is positive with Gram-negative rods. The patient is receiving no antibiotics. The patient also has sacral decubitus. The patient is currently awake, alert, able to communicate. Denies any nausea, vomiting, diarrhea. Denies any urinary symptoms. Denies any chest pain, shortness of breath, abdominal pain, headache or visual symptoms. PAST MEDICAL HISTORY: Positive for hypertension, glaucoma, has had . SOCIAL HISTORY: Negative for smoking, alcohol or illicit drug use. ALLERGIES: No known drug allergies. CURRENT MEDICATIONS: Reviewed. REVIEW OF SYSTEMS: As in HPI. All other systems reviewed and are negative. PHYSICAL EXAMINATION: GENERAL: Alert, oriented female, not in distress. VITAL SIGNS: Temperature 97.2, pulse 95, respirations 18, blood pressure 125/80. HEENT: NAD. Both pupils are round and reacting. No conjunctival lesion. No lesion in the mouth. NECK: Supple, no JVP, no lymphadenopathy. LUNGS: Clear. HEART: S1, S2, regular. ABDOMEN: Soft, nontender, no organomegaly. EXTREMITIES: No edema, cyanosis. SKIN: She does have sacral decubitus stage 2. NEUROLOGIC: The patient is alert, awake and appropriate. Does answer appropriately. No focal deficit. LABORATORY DATA: White count is 10,000. BUN and creatinine is 24 and 1.2. Urinalysis, as I mentioned. Blood culture, Gram-negative rods. DIAGNOSTIC DATA: The patient had multiple x-rays done including cervical CT and head CT, which was unremarkable for any acute changes. IMPRESSION: 1. Gram-negative jamil bacteremia, most likely from urinary tract infection. 2. Sepsis. 3. Encephalopathy/fall with weakness. 4. Sacral decubitus. RECOMMENDATIONS: Would initiate IV Rocephin, hydration, supportive care, PT, OT and we will continue to follow. Thank you very much, Dr. Sanford, for giving me opportunity to participate in this patient's care. LEI DR: Johanna TID: [id number]
--- NOTE | 2021-11-13 14:09 | NUR ---
SS following for discharge planning. SS reviewed pt chart and discussed with pt RN. Pt is from home and is currently on room air. Cardiology, ID, and wound care consulted. PO diet. Pt on IV Rocephin. PT/OT ordered. SS will continue to follow for discharge planning.
[2021-11-13 15:19] VITALS: BP 117/60
--- NOTE | 2021-11-13 17:20 | CARD ---
MR#: [id number] Date of Study: 11/13/2021 Ordering Physician: PAM WRIGHT, Referring Physician: PAM WRIGHT Tech: Reilly Goodman RUST APPROVED REPORT EXAM: Two-dimensional and M-mode echocardiogram with Doppler and color Doppler. Other Information Quality : GoodHR: 81bpm Rhythm : Atrial Fibrillation INDICATION Atrial Fibrillation RISK FACTORS Hypertension 2D DIMENSIONS Left Atrium(2D)6.0 (1.6-4.0cm)IVSd1.0 (0.7-1.1cm) Aortic Root(2D)3.0 (2.0-3.7cm)LVDd5.6 (3.9-5.9cm) LVOT Diameter1.8 (1.8-2.4cm)PWd1.1 (0.7-1.1cm) LVDs3.1 (2.5-4.0cm)FS (%) 45.2 % SV116.0 mlLVEF(%)76.0 (>50%) Aortic Valve AoV Peak Teo.181.0cm/sAoV VTI27.7cm AO Peak GR.13.1mmHgLVOT Peak Teo.112.1cm/s AO Mean GR.8mmHgAVA (VMAX)1.54cm2 Mitral Valve MV E Peak Gr.7mmHgMV E Mean Gr.2mmHg Pulmonary Valve PV Peak Mxgpymsp40.3cm/s Tricuspid Valve TR P. Ykudonkx077bd/sTR Peak Gr.46mmHg Pulmonary Vein S1 Idxabxze79.4cm/sD2 Qycdqgqc95.0cm/s LEFT VENTRICLE The left ventricle is normal size. There is normal left ventricular wall thickness. The left ventricu lar systolic function is normal. The ejection fraction is 55%. There is normal LV segmental wall saad on. Diastolic function unable to be assessed due to atrial fibrillation. No left ventricle thrombus n oted on this study. There is no ventricular septal defect visualized. There is no left ventricular an eurysm. There is no mass noted in the left ventricle. RIGHT VENTRICLE The right ventricle is borderline dilated. There is normal right ventricular wall thickness. The righ t ventricular systolic function is normal. ATRIA The left atrium is moderately dilated. The right atrium is moderately dilated. The interatrial septum is intact with no evidence for an atrial septal defect or patent foramen ovale as noted on 2-D or Do ppler imaging. AORTIC VALVE The aortic valve is normal in structure and function. Doppler and Color Flow revealed no significant aortic regurgitation. There is no significant aortic valvular stenosis. There is no aortic valvular v egetation. MITRAL VALVE The mitral valve is thickened but opens well. There is no evidence of mitral valve prolapse. There is no mitral valve stenosis. Doppler and Color-flow revealed mild to moderate mitral regurgitation. TRICUSPID VALVE Doppler and Color Flow revealed moderate tricuspid regurgitation. The PA pressure was estimated at 61 mmHg. There is no tricuspid valve prolapse or vegetation. There is no tricuspid valve stenosis. PULMONIC VALVE The pulmonary valve is normal in structure and function. Doppler and Color Flow revealed no pulmonic valvular regurgitation. There is no pulmonic valvular stenosis. GREAT VESSELS The aortic root is normal in size. The ascending aorta is normal in size. The pulmonary artery is nor mal. The IVC is dilated with blunted inspiratory response. PERICARDIAL EFFUSION There is no pleural effusion. There is no evidence of significant pericardial effusion. Critical Notification Critical Value: No <Conclusion> The left ventricular systolic function is normal. The ejection fraction is 55%. There is normal LV segmental wall motion. Moderate biatrial enlargement. Mild to moderate mitral regurgitation. Moderate tricuspid regurgitation. The PA pressure was estimated at 61 mmHg. There is no evidence of significant pericardial effusion. Signed by : Harris Mary, Electronically Approved : 11/13/2021 17:20:16
[2021-11-13] MEDS: METOPROLOL TART IMMED RELEASE 25 MG TABLET. PO SCH (19:30)
[2021-11-13 19:49] VITALS: BP 133/75
[2021-11-13 22:39] VITALS: BP 121/54
[2021-11-14 00:14] LABS: HEMOGLOBIN A1C 6.5 % (4.8-5.6)
[2021-11-14] MEDS: METOPROLOL TART IMMED RELEASE 25 MG TABLET. PO SCH ×2 (00:39→06:14)
[2021-11-14 02:20] VITALS: BP 116/68
[2021-11-14 07:00] VITALS: BP 119/66
[2021-11-14] MEDS: APIXABAN 5 MG TABLET. PO SCH ×2 (08:31→20:24)
[2021-11-14] MEDS: ASCORBIC ACID 500 MG TABLET PO SCH (08:31)
[2021-11-14] MEDS: MULTIVITAMIN with MINERAL TABLET. PO SCH (08:31)
[2021-11-14] MEDS: NYSTATIN TOPICAL POWDER 15GM BOTTLE. TP SCH ×2 (08:32→20:29)
[2021-11-14] MEDS: LOSARTAN POTASSIUM 25 MG TABLET. PO SCH (08:32)
[2021-11-14 11:00] VITALS: BP 127/65
[2021-11-14] MEDS ORDERED: DIGOXIN IV 500 MCG/2 ML AMPUL. IV ONE (12:00)
[2021-11-14] MEDS ORDERED: METOPROLOL SUCC 24HR ER 100 MG TAB.ER.24H. PO ONE (12:00)
--- NOTE | 2021-11-14 12:06 | PDOC ---
CARDIO Progress Notes Date and Time Date of Service 11/14/2021 Time of Evaluation 1140 Subjective Subjective: No Chest Pain, No shortness of breath, No Palpitations Vitals Vitals Vital Signs Date Time Temp Pulse Resp B/P (MAP) Pulse Ox O2 Delivery O2 Flow Rate FiO2 11/14/21 11:00 98.6 79 18 127/65 (85) 96 Room Air 98.6 Weight Weight [ ] Input and Output Intake and Output Intake and Output 11/14/21 07:00 Intake Total 600 ml Output Total 350 ml Balance 250 ml Intake Oral 600 ml Output Urine Total 350 ml # Voids 1 Laboratory Labs Laboratory Tests Test 11/14/21 04:00 Creatine Kinase 510 U/L (26-192) Microbiology Micro Microbiology 11/12/21 Urine Culture - Final, Complete 11/12/21 Blood Culture - Preliminary, Resulted Proteus Vulgaris Group Physical Exam HEENT: Neck Supple W Full Motion Chest: Symmetric LUNGS: Other Heart: S1S2, irregularly irregular (AFIB) Extremities: No Calf Tenderness Neurology: alert, oriented, follow commands Assessment Assessment 1. AFIB RVR: new. EF 55%. rate improved 2. HTN: controlled 3. DM2: A1C 6.5 new finding, defer to PCP 4. Nontraumatic mechanical fall: denies syncopal event, was asleep sitting and fell over from chair 5. Possible UTI: per PCP 6. Rhabdomyolysis 7. Glaucoma: legally blind 8. Diastolic CHF: clinically compensated 9. Moderate pulmonary HTN Recommendations 1. Toprol XL. Dig IV x1. Eliquis for stroke prevention 2. outpt CVN 3. Follow up in office Justicifation of Admission Dx: Justifications for Admission: Justification of Admission Dx: Yes PAM WRIGHT APRN Nov 14, 2021 12:06
--- NOTE | 2021-11-14 12:36 | NUR ---
SS following up with discharge planning. SS reviewed pt chart and discussed with pt RN. Pt is currently on room air. Cardiology and ID following. Wound care consulted. Pt on IV Rocephin. Pt having some confusion. PT/OT recommended halfway unit. SS met with pt and pt's family in room and discussed discharge planning and halfway unit. Pt's family requesting referral to [facility], ; fax [phone]. Referral phoned and faxed as requested. SS will continue to follow for discharge planning. Addendum: 11/14/21 at 1252 by PAM CULLEN SS Pt accepted at [facility] pending COVID19 PCR and insurance approval.
--- NOTE | 2021-11-14 13:01 | PDOC ---
Infectious Disease Note Subjective Subjective Patient is up in the chair feeling really good ROS ROS No nausea vomiting diarrhea chest pain shortness of breath or fever Vital Sign Vital Signs Vital Signs Date Time Temp Pulse Resp B/P (MAP) Pulse Ox O2 Delivery O2 Flow Rate FiO2 11/14/21 12:32 79 127/65 11/14/21 11:00 98.6 18 96 Room Air 98.6 Physical Exam PHYSICAL EXAM GENERAL: Alert, oriented female, not in distress. VITAL SIGNS: Stable HEENT: NAD. Both pupils are round and reacting. No conjunctival lesion. No lesion in the mouth. NECK: Supple, no JVP, no lymphadenopathy. LUNGS: Clear. HEART: S1, S2, regular. ABDOMEN: Soft, nontender, no organomegaly. EXTREMITIES: No edema, cyanosis. SKIN: She does have sacral decubitus stage 2. NEUROLOGIC: The patient is alert, awake and appropriate. Does answer appropriately. No focal deficit. Labs Lab Laboratory Tests Test 11/14/21 04:00 Creatine Kinase 510 U/L (26-192) Micro Procedure Result BLOOD CULTURE Preliminary GROWTH OF GRAM NEGATIVE RODS FINAL ID= PROTEUS VULGARIS GROUP Testing performed by [address] [address] conference director: Cee Burger MD Organism 1 PROTEUS VULGARIS GROUP Objective Assessment IMPRESSION: 1. Gram-negative jamil bacteremia, most likely from urinary tract infection./Proteus vulgaris 2. Sepsis. 3. Encephalopathy/fall with weakness. 4. Sacral decubitus. Plan Plan of Care Susceptibilities are pending Continue IV Rocephin Continue supportive care Discussed with daughter RAJKALA MD Nov 14, 2021 13:01
--- NOTE | 2021-11-14 13:31 | PDOC ---
[facility] [facility] PROGRESS NOTE Date of Service DOS: DATE: 11/14/21 TIME: 13:21 Chief Complaint Chief Complaint A. fib with RVR Rhabdomyolysis Lactic acidosis Physical debility Gram-negative jamil bacteremia History of Present Illness History of Present Illness Patient is a 81 year old female past medical history HTN, glaucoma, presents to ED for evaluation of hip pain after a fall at home. About a week ago she fell out of her recliner and since that time she has been complaining of hip pain and worsening weakness. She lives at home alone but her 2 daughters check on her frequently. She reports worsening weakness over the past week after her fall. Reportedly patient was covered in urine and feces upon EMS arrival. In ED she complains of bilateral hip pain, but no evidence of fracture on imaging. While in the ED she went into A. fib with RVR, and was placed on a diltiazem drip. Labs on admission showed potassium 3.4, lactic acid 2.6, magnesium 1.9, AST 67, ALT 31, CK 1213, BNP 2813, high-sensitivity troponin 68. Will admit patient with cardiology consult for further medical management. 11/14/2021: Patient evaluated bedside chair. Afebrile, no complaints today. Proteus vulgaris growing in blood. CK 501. Will await sensitivities; continue Rocephin 2 g IV. Currently rate controlled A. fib. Started on Toprol-XL and Eliquis, per cardiology. PT recommending SNU with rolling walker. Vitals/I&O Vitals/I&O: Vital Signs Date Time Temp Pulse Resp B/P (MAP) Pulse Ox O2 Delivery O2 Flow Rate FiO2 11/14/21 12:32 79 127/65 11/14/21 11:00 98.6 18 96 Room Air 98.6 I & O 11/13/21 11/13/21 11/14/21 15:00 23:00 07:00 Intake Total 300 ml 250 ml 50 ml Output Total 100 ml 250 ml Balance 300 ml 150 ml -200 ml Physical Exam Physical Exam: GENERAL: Alert, oriented female, not in distress. VITAL SIGNS: Stable HEENT: NAD. Both pupils are round and reacting. No conjunctival lesion. No lesion in the mouth. NECK: Supple, no JVP, no lymphadenopathy. LUNGS: Clear. HEART: S1, S2, regular. ABDOMEN: Soft, nontender, no organomegaly. EXTREMITIES: No edema, cyanosis. SKIN: She does have sacral decubitus stage 2. NEUROLOGIC: The patient is alert, awake and appropriate. Does answer appropriately. No focal deficit. General: Alert, Oriented X3, Cooperative, No acute distress Heart: Other (3/6 systolic murmur to KORINA border, AFIB RVR) Lungs: Clear, Crackles Abdomen: Soft, No tenderness Extremities: No cyanosis, Other (1+ bilateral LE pitting edema) Skin: No breakdown, No significant lesion Labs Labs: Laboratory Tests Test 11/14/21 04:00 Creatine Kinase 510 U/L (26-192) Assessment and Plan Assessmemt and Plan Problems Medical Problems: (1) Atrial fibrillation with rapid ventricular response Status: Acute (2) Generalized weakness Status: Acute (3) Lactic acidosis Status: Acute (4) Rhabdomyolysis Status: Acute Comment Review of Relevant I have reviewed the following items rony (where applicable) has been applied. Medications: Current Medications Medications (Trade) Dose Ordered Sig/Yahaira Route PRN Reason Start Time Stop Time Status Last Admin Dose Admin Metoprolol Tartrate (Lopressor) 25 mg Q6HRS PO 11/13/21 18:00 11/14/21 12:01 DC 11/14/21 06:14 Ceftriaxone Sodium (Rocephin) 2 gm Q24H IVP 11/13/21 14:00 11/13/21 13:50 Multivitamins (Thera M Plus) 1 tab DAILY PO 11/14/21 09:00 11/14/21 08:31 Ascorbic Acid (Vitamin C) 500 mg DAILY PO 11/14/21 09:00 11/14/21 08:31 Digoxin (Lanoxin) 250 mcg 1X ONCE IV 11/14/21 12:00 11/14/21 12:03 DC 11/14/21 12:32 Metoprolol Succinate (Toprol Xl) 100 mg 1X ONCE PO 11/14/21 12:00 11/14/21 12:03 DC 11/14/21 12:31 Justifications for Admission General Conditions Poss tachycardia?: Yes Justification for admission: Patient has tachycardia (> 100 beats per minute) which is not readily corrected by appropriate treatment within 12 to 24 hours. Other Justification JULIÁN NIELSON MD Nov 14, 2021 13:31
--- NOTE | 2021-11-14 13:40 | NUR ---
Wound/Ostomy Care Wound Type/Assessment: Wound care consult for multiple pressure ulcers due to being on the floor for extended amount of time. Pt has large unstageable PU to sacrum that is necrotic. Pt as DTI to bilateral heels and an intact blister of unknown origin to RLE. Cleansed, measured and redressed all wounds. Treatment Recommendations/Plan: Coccyx: honey, xeroform, foam, change Q2D Bilateral heels and RLE: betadine and foam, change Q2-3 days. Education provided: PU prevention and WC POC Offloading surface/device: TQ2H, avoid back laying, float heels, heel medix boots ordered Recommended Referrals/Tests: may need surgical consult, will see how it looks Wednesday Discharge Recommendations for dressings: see above
[2021-11-14] MEDS: cefTRIAXone IV Push 2 GM VIAL. IVP SCH (14:09)
[2021-11-14 14:22] VITALS: BP 116/68
[2021-11-14 19:27] VITALS: BP 139/78
[2021-11-14] MEDS: LACTOBACILLUS RHAMNOSUS GG 1 CAPSULE. PO SCH (20:23)
[2021-11-14 22:51] VITALS: BP 123/70
[2021-11-15 03:03] VITALS: BP 135/79
[2021-11-15 07:00] VITALS: BP 128/82
[2021-11-15] MEDS: METOPROLOL SUCC 24HR ER 100 MG TAB.ER.24H. PO SCH (08:12)
[2021-11-15] MEDS: LACTOBACILLUS RHAMNOSUS GG 1 CAPSULE. PO SCH ×2 (08:12→21:32)
[2021-11-15] MEDS: APIXABAN 5 MG TABLET. PO SCH ×2 (08:12→21:32)
[2021-11-15] MEDS: ASCORBIC ACID 500 MG TABLET PO SCH (08:12)
[2021-11-15] MEDS: MULTIVITAMIN with MINERAL TABLET. PO SCH (08:13)
[2021-11-15] MEDS: LOSARTAN POTASSIUM 25 MG TABLET. PO SCH (08:13)
[2021-11-15] MEDS: NYSTATIN TOPICAL POWDER 15GM BOTTLE. TP SCH ×2 (08:34→21:33)
--- NOTE | 2021-11-15 10:53 | PDOC ---
[employer] [facility] PROGRESS NOTE Date of Service DOS: DATE: 11/15/21 TIME: 10:50 Chief Complaint Chief Complaint A. fib with RVR Rhabdomyolysis Lactic acidosis Physical debility Gram-negative jamil bacteremia History of Present Illness History of Present Illness 11/15/2021 Patient seen and examined Discussed with RN Chart reviewed She is working with physical therapy currently Pleasantly confused Patient is a 81 year old female past medical history HTN, glaucoma, presents to ED for evaluation of hip pain after a fall at home. About a week ago she fell out of her recliner and since that time she has been complaining of hip pain and worsening weakness. She lives at home alone but her 2 daughters check on her frequently. She reports worsening weakness over the past week after her fall. Reportedly patient was covered in urine and feces upon EMS arrival. In ED she complains of bilateral hip pain, but no evidence of fracture on imaging. While in the ED she went into A. fib with RVR, and was placed on a diltiazem drip. Labs on admission showed potassium 3.4, lactic acid 2.6, magnesium 1.9, AST 67, ALT 31, CK 1213, BNP 2813, high-sensitivity troponin 68. Will admit patient with cardiology consult for further medical management. 11/14/2021: Patient evaluated bedside chair. Afebrile, no complaints today. Proteus vulgaris growing in blood. CK 501. Will await sensitivities; continue Rocephin 2 g IV. Currently rate controlled A. fib. Started on Toprol-XL and Eliquis, per cardiology. PT recommending SNU with rolling walker. Vitals/I&O Vitals/I&O: Vital Signs Date Time Temp Pulse Resp B/P (MAP) Pulse Ox O2 Delivery O2 Flow Rate FiO2 11/15/21 08:13 88 128/82 11/15/21 08:00 Room Air 2.0 11/15/21 07:00 98.4 18 100 98.4 I & O 11/14/21 11/14/21 11/15/21 15:00 23:00 07:00 Intake Total 575 ml 250 ml 0 ml Output Total 300 ml Balance 575 ml 250 ml -300 ml Physical Exam Physical Exam: GENERAL: Alert, oriented female, not in distress. VITAL SIGNS: Stable HEENT: NAD. Both pupils are round and reacting. No conjunctival lesion. No lesion in the mouth. NECK: Supple, no JVP, no lymphadenopathy. LUNGS: Clear. HEART: S1, S2, regular. ABDOMEN: Soft, nontender, no organomegaly. EXTREMITIES: No edema, cyanosis. SKIN: She does have sacral decubitus stage 2. NEUROLOGIC: The patient is alert, awake and appropriate. Does answer appropriately. No focal deficit. General: Cooperative, No acute distress, Other (Seems confused) Heart: Other (3/6 systolic murmur to KORINA border, AFIB RVR) Lungs: Clear, Crackles Abdomen: Soft, No tenderness Extremities: No cyanosis, Other (1+ bilateral LE pitting edema) Skin: No breakdown, No significant lesion Assessment and Plan Assessmemt and Plan Problems Medical Problems: (1) Atrial fibrillation with rapid ventricular response Status: Acute (2) Generalized weakness Status: Acute (3) Lactic acidosis Status: Acute (4) Rhabdomyolysis Status: Acute A. fib with RVR Proteus vulgaris growing in blood Mostly blind Encephalopathy Severe glaucoma Rhabdomyolysis Lactic acidosis Physical debility Gram-negative jamil bacteremia Plan engine monitor IV antibiotics (Rocephin) Eliquis Metoprolol Home meds PT OT Encourage p.o. intake Trend labs DVT prophylaxis Full code Appreciate subspecialist input Suspect she will need to go [facility] pen[facility] Comment Review of Relevant I have reviewed the following items rony (where applicable) has been applied. Medications: Current Medications Medications (Trade) Dose Ordered Sig/Yahaira Route PRN Reason Start Time Stop Time Status Last Admin Dose Admin Lactobacillus Rhamnosus (Culturelle) 1 cap BID PO 11/14/21 21:00 11/15/21 08:12 Digoxin (Lanoxin) 250 mcg 1X ONCE IV 11/14/21 12:00 11/14/21 12:03 DC 11/14/21 12:32 Metoprolol Succinate (Toprol Xl) 100 mg DAILY PO 11/15/21 09:00 11/15/21 08:12 Metoprolol Succinate (Toprol Xl) 100 mg 1X ONCE PO 11/14/21 12:00 11/14/21 12:03 DC 11/14/21 12:31 Justifications for Admission General Conditions Poss tachycardia?: Yes Justification for admission: Patient has tachycardia (> 100 beats per minute) which is not readily corrected by appropriate treatment within 12 to 24 hours. Other Justification YUE BRAR III DO Nov 15, 2021 10:53
[2021-11-15 11:00] VITALS: BP 139/81
[2021-11-15] MEDS: cefTRIAXone IV Push 2 GM VIAL. IVP SCH (14:59)
[2021-11-15 15:00] VITALS: BP 151/85
--- NOTE | 2021-11-15 15:52 | PDOC ---
PROGRESS NOTES Date of Service DATE: 11/15/21 TIME: 15:50 Subjective Subjective Patient seen and examined Objective Objective Vital Signs Date Time Temp Pulse Resp B/P (MAP) Pulse Ox O2 Delivery O2 Flow Rate FiO2 11/15/21 15:00 99.8 83 18 151/85 (107) 97 Room Air 99.8 11/15/21 08:00 2.0 Intake and Output 11/15/21 07:00 Intake Total 825 ml Output Total 300 ml Balance 525 ml Intake Oral 825 ml Output Urine Total 300 ml Physical Exam Abdomen: Normal bowel sounds Heart: Other (Irregular rhythm) General: No acute distress Lungs: Other (Minimally decreased breath sounds) Assessment Assessment Problems Medical Problems: (1) Atrial fibrillation with rapid ventricular response Status: Acute (2) Generalized weakness Status: Acute (3) Lactic acidosis Status: Acute (4) Rhabdomyolysis Status: Acute 1. AFIB RVR: new. EF 55%. Rate improved. Continue Toprol and Eliquis. Outp atient follow-up. 2. HTN: controlled 3. DM2: A1C 6.5 as per the primary service. 4. Nontraumatic mechanical fall: denies syncopal event, was asleep sitting and fell over from chair 5. Possible UTI: per PCP 6. Rhabdomyolysis 7. Glaucoma: legally blind 8. Diastolic CHF: clinically compensated 9. Moderate pulmonary HTN Comment Review of Relevant I have reviewed the following items rony (where applicable) has been applied. Labs Laboratory Tests Test 11/14/21 04:00 11/15/21 08:15 Creatine Kinase 510 U/L (26-192) Coronavirus (COVID-19)(PCR) Not detected (NOT DETECTD) Laboratory Tests Test 11/15/21 08:15 Coronavirus (COVID-19)(PCR) Not detected (NOT DETECTD) Microbiology 11/12/21 Urine Culture - Final, Complete 11/12/21 Blood Culture - Final, Complete Proteus Vulgaris Group Medications Current Medications Sodium Chloride 1,000 ml @ 1,000 mls/hr 1X ONCE IV Last administered on at 19:00; Start 11/12/21 at 18:30; Stop 11/12/21 at 19:29; Status DC Fentanyl Citrate (Fentanyl 2ml Vial) 50 mcg 1X ONCE IVP Last administered on 11/12/21at 19:21; Start 11/12/21 at 18:30; Stop 11/12/21 at 18:33; Status DC Diltiazem HCl (Cardizem Iv Push) 10 mg 1X ONCE IVP Last administered on 11/12/21at 19:05; Start 11/12/21 at 18:45; Stop 11/12/21 at 18:46; Status DC Diltiazem HCl (Cardizem Iv Push) 10 mg 1X ONCE IVP Last administered on 11/12/21at 19:49; Start 11/12/21 at 19:30; Stop 11/12/21 at 19:31; Status DC Sodium Chloride 1,000 ml @ 1,000 mls/hr 1X ONCE IV Last administered on 11/12/21at 20:02; Start 11/12/21 at 19:45; Stop 11/12/21 at 20:44; Status DC Diltiazem HCl 125 mg/Sodium Chloride 125 ml @ 5 mls/hr CONT PRN IV PER PROTOCOL Last administered on 11/12/21at 20:04; Start 11/12/21 at 19:45; Stop 11/13/21 at 05:43; Status DC Aspirin (Ecotrin) 325 mg 1X ONCE PO Last administered on 11/12/21at 21:13; Start 11/12/21 at 20:45; Stop 11/12/21 at 20:47; Status DC Enoxaparin Sodium (Lovenox 80mg Syringe) 80 mg 1X ONCE SQ Last administered on 11/12/21at 21:13; Start 11/12/21 at 20:45; Stop 11/12/21 at 20:47; Status DC Diltiazem HCl 125 mg/Dextrose 125 ml @ 5 mls/hr CONT PRN IV PER PROTOCOL Last administered on 11/13/21at 06:01; Start 11/13/21 at 05:45; Stop 11/13/21 at 11:17; Status DC Nystatin (Nystop) 1 santo BID TP Last administered on 11/15/21at 08:34; Start at 09:00 Ondansetron HCl (Zofran) 4 mg PRN Q6HRS PRN IVP NAUSEA/VOMITING; Start 11/13/21 at 09:45 Al Hydroxide/Mg Hydroxide (Mylanta Plus Xs) 30 ml PRN Q3HRS PRN PO HEARTBURN / GAS; Start 11/13/21 at 09:45 Zolpidem Tartrate (Ambien) 5 mg PRN QHS PRN PO INSOMNIA, MAY REPEAT IN 1HR; Start 11/13/21 at 09:45 Morphine Sulfate (Morphine Sulfate) 2 mg PRN Q1HR PRN IV PAIN; Start 11/13/21 at 09:45 Acetaminophen/ Hydrocodone Bitart (Lortab 5/325) 1 tab PRN Q4HRS PRN PO MILD PAIN 1-3; Start 11/13/21 at 09:45 Acetaminophen (Tylenol) 650 mg PRN Q6HRS PRN PO Headaches, Temp > 101.5F; Start 11/13/21 at 09:45 Magnesium Hydroxide (Milk Of Magnesia) 2,400 mg PRN Q12HR PRN PO CONSTIPATION; Start 11/13/21 at 09:45 Heparin Sodium (Porcine) (Heparin Sodium) 5,000 unit Q12HR SQ ; Start 11/13/21 at 10:00; Status Cancel Losartan Potassium (Cozaar) 25 mg DAILY PO Last administered on 11/15/21at 08:13; Start 11/13/21 at 11:30 Potassium Chloride (Klor-Con) 20 meq 1X ONCE PO Last administered on 11/13/21at 12:35; Start 11/13/21 at 11:30; Stop 11/13/21 at 11:31; Status DC Digoxin (Lanoxin) 500 mcg 1X ONCE IV Last administered on 11/13/21at 12:50; Start 11/13/21 at 11:30; Stop 11/13/21 at 11:31; Status DC Apixaban (Eliquis) 5 mg BID PO Last administered on 11/15/21at 08:12; Start 11/13/21 at 11:30 Metoprolol Tartrate (Lopressor) 25 mg 1X ONCE PO Last administered on 11/13/21at 12:37; Start 11/13/21 at 11:30; Stop 11/13/21 at 11:31; Status DC Metoprolol Tartrate (Lopressor) 25 mg Q6HRS PO Last administered on 11/14/21at 06:14; Start 11/13/21 at 18:00; Stop 11/14/21 at 12:01; Status DC Ceftriaxone Sodium (Rocephin) 2 gm Q24H IVP Last administered on 11/15/21at 14:59; Start 11/13/21 at 14:00 Multivitamins (Thera M Plus) 1 tab DAILY PO Last administered on 11/15/21at 08:13; Start 11/14/21 at 09:00 Ascorbic Acid (Vitamin C) 500 mg DAILY PO Last administered on 11/15/21at 08:12; Start 11/14/21 at 09:00 Lactobacillus Rhamnosus (Culturelle) 1 cap BID PO Last administered on 11/15/21at 08:12; Start 11/14/21 at 21:00 Digoxin (Lanoxin) 250 mcg 1X ONCE IV Last administered on 11/14/21at 12:32; Start 11/14/21 at 12:00; Stop 11/14/21 at 12:03; Status DC Metoprolol Succinate (Toprol Xl) 100 mg DAILY PO Last administered on 11/15/21at 08:12; Start 11/15/21 at 09:00 Metoprolol Succinate (Toprol Xl) 100 mg 1X ONCE PO Last administered on 11/14/21at 12:31; Start 11/14/21 at 12:00; Stop 11/14/21 at 12:03; Status DC Vitals/I & O Vital Sign - Last 24 Hours 11/14/21 11/14/21 11/14/21 11/15/21 19:27 20:00 22:51 03:03 Temp 98.6 97.9 99.2 98.6 97.9 99.2 Pulse 78 107 106 Resp 20 20 20 B/P (MAP) 139/78 (98) 123/70 (87) 135/79 (97) Pulse Ox 95 94 95 O2 Delivery Room Air Room Air Room Air Room Air 11/15/21 11/15/21 11/15/21 11/15/21 07:00 08:00 08:12 08:13 Temp 98.4 98.4 Pulse 88 88 88 Resp 18 B/P (MAP) 128/82 (97) 128/82 128/82 Pulse Ox 100 O2 Delivery Room Air Room Air O2 Flow Rate 2.0 11/15/21 11/15/21 11:00 15:00 Temp 97.7 99.8 97.7 99.8 Pulse 112 83 Resp 18 18 B/P (MAP) 139/81 (100) 151/85 (107) Pulse Ox 98 97 O2 Delivery Room Air Room Air Intake and Output 11/14/21 11/14/21 11/15/21 15:00 23:00 07:00 Intake Total 575 ml 250 ml 0 ml Output Total 300 ml Balance 575 ml 250 ml -300 ml Justifications for Admission General Conditions Poss tachycardia?: Yes Justification for admission: Patient has tachycardia (> 100 beats per minute) which is not readily corrected by appropriate treatment within 12 to 24 hours. Other Justification KOKO SANTANA MD Nov 15, 2021 15:52
[2021-11-15 18:48] VITALS: BP 138/63
[2021-11-15 22:20] VITALS: BP 140/76
[2021-11-16 02:50] VITALS: BP 127/90
[2021-11-16 06:33] VITALS: BP 143/74
[2021-11-16] MEDS: LACTOBACILLUS RHAMNOSUS GG 1 CAPSULE. PO SCH (08:03)
[2021-11-16] MEDS: APIXABAN 5 MG TABLET. PO SCH (08:03)
[2021-11-16] MEDS: MULTIVITAMIN with MINERAL TABLET. PO SCH (08:03)
[2021-11-16] MEDS: LOSARTAN POTASSIUM 25 MG TABLET. PO SCH (08:03)
[2021-11-16] MEDS: METOPROLOL SUCC 24HR ER 100 MG TAB.ER.24H. PO SCH (08:03)
[2021-11-16] MEDS: ASCORBIC ACID 500 MG TABLET PO SCH (08:03)
[2021-11-16] MEDS: NYSTATIN TOPICAL POWDER 15GM BOTTLE. TP SCH (08:11)
[2021-11-16 10:46] VITALS: BP 116/60
[2021-11-16] MEDS ORDERED: AMOXICILLIN/K CLAV 875/125MG TABLET. PO SCH (12:30)
[2021-11-16] MEDS ORDERED: HYDR-2761 PO (12:39)
[2021-11-16] MEDS ORDERED: METO-247 PO (12:39)
[2021-11-16] MEDS ORDERED: LOSA25TA54 PO (12:39)
[2021-11-16] MEDS ORDERED: APIX5TAB PO (12:39)
[2021-11-16] MEDS ORDERED: AMOX1TAB11 PO (12:39)
--- NOTE | 2021-11-16 12:41 | SNU/HH DC ---
DISCHARGE ORDERS DISCHARGE INFORMATION: FINAL DIAGNOSIS Problems Medical Problems: (1) Atrial fibrillation with rapid ventricular response Status: Acute (2) Generalized weakness Status: Acute (3) Lactic acidosis Status: Acute (4) Rhabdomyolysis Status: Acute CONDITION ON DISCHARGE: Stable CODE STATUS: Code Status: Full LONGTERM: SNF STAY <30 DAYS: Yes HOSPICE: HOSPICE: No HOSPICE EVAL & TREAT: No LTAC: ADMIT TO LTAC: No POST DISCHARGE ORDERS: ACTIVITY ORDERS: Bedrest today DIET AFTER DISCHARGE: Cardiac TREATMENT/EQUIPMENT ORDERS: Physical Therapy For: Evalulation/Treatment Occupational Therapy For: Evaluation/Treatment DISCHARGE MEDICATIONS: Home Meds Active Scripts Hydrocodone Bit/Acetaminophen (HYDROCODONE-APAP 5-325 ) 1 Tab Tablet, 1 TAB PO PRN Q4HRS PRN for MILD PAIN 1-3 for 10 Days, #20 TAB Prov:CASTLE,NIAL K III DO 11/16/21 Losartan Potassium (LOSARTAN POTASSIUM ) 25 Mg Tablet, 25 MG PO DAILY for . for 30 Days, #30 TAB Prov:CASTLE,NIAL K III DO 11/16/21 Metoprolol Succinate (METOPROLOL SUCCINATE ( XL )) 100 Mg Tab.er.24h, 100 MG PO DAILY for . for 30 Days, #30 TAB.SR Prov:CASTLE,NIAL K III DO 11/16/21 Apixaban (ELIQUIS) 5 Mg Tablet, 5 MG PO BID for . for 30 Days, #60 TAB Prov:CASTLE,NIAL K III DO 11/16/21 Amoxicillin/Potassium Clav (AMOX TR-K CLV 875-125 MG TAB) 1 Each Tablet, 1 TAB PO BID for . for 7 Days, #14 TAB Prov:CASTLE,NIAL K III DO 11/16/21 CASTLE,NIAL K III DO Nov 16, 2021 12:41
--- NOTE | 2021-11-16 12:58 | PDOC ---
PROGRESS NOTES Date of Service DATE: 11/16/21 TIME: 12:57 Subjective Subjective Patient seen and examined Objective Objective Vital Signs Date Time Temp Pulse Resp B/P (MAP) Pulse Ox O2 Delivery O2 Flow Rate FiO2 11/16/21 10:46 99.4 99 18 116/60 (78) 94 Room Air 99.4 11/16/21 08:00 2.0 Intake and Output 11/16/21 07:00 Intake Total 750 ml Output Total 1300 ml Balance -550 ml Intake Oral 750 ml Output Urine Total 1300 ml Physical Exam Abdomen: Normal bowel sounds Heart: Other (Irregularly irregular) General: No acute distress Lungs: Clear to auscultation Assessment Assessment Problems Medical Problems: (1) Atrial fibrillation with rapid ventricular response Status: Acute (2) Generalized weakness Status: Acute (3) Lactic acidosis Status: Acute (4) Rhabdomyolysis Status: Acute 1. AFIB RVR: new. EF 55%. Rate improved. Continue Toprol and Eliquis. Outpatient follow-up. 2. HTN: controlled. Continue present medical treatment. 3. DM2: A1C 6.5 as per the primary service. 4. Nontraumatic mechanical fall: denies syncopal event, was asleep sitting and fell over from chair 5. Possible UTI: per PCP 6. Glaucoma: legally blind 7. Diastolic CHF: clinically compensated 8. Moderate pulmonary HTN Comment Review of Relevant I have reviewed the following items rony (where applicable) has been applied. Labs Laboratory Tests Test 11/15/21 08:15 Coronavirus (COVID-19)(PCR) Not detected (NOT DETECTD) Microbiology 11/12/21 Urine Culture - Final, Complete 11/12/21 Blood Culture - Final, Complete Proteus [facility]garis [facility] Medications Current Medications Sodium Chloride 1,000 ml @ 1,000 mls/hr 1X ONCE IV Last administered on 11/12/21at 19:00; Start 11/12/21 at 18:30; Stop 11/12/21 at 19:29; Status DC Fentanyl Citrate (Fentanyl 2ml Vial) 50 mcg 1X ONCE IVP Last administered on 11/12/21at 19:21; Start 11/12/21 at 18:30; Stop 11/12/21 at 18:33; Status DC Diltiazem HCl (Cardizem Iv Push) 10 mg 1X ONCE IVP Last administered on 11/12/21at 19:05; Start 11/12/21 at 18:45; Stop 11/12/21 at 18:46; Status DC Diltiazem HCl (Cardizem Iv Push) 10 mg 1X ONCE IVP Last administered on 11/12/21at 19:49; Start 11/12/21 at 19:30; Stop 11/12/21 at 19:31; Status DC Sodium Chloride 1,000 ml @ 1,000 mls/hr 1X ONCE IV Last administered on 11/12/21at 20:02; Start 11/12/21 at 19:45; Stop 11/12/21 at 20:44; Status DC Diltiazem HCl 125 mg/Sodium Chloride 125 ml @ 5 mls/hr CONT PRN IV PER PROTOCOL Last administered on 11/12/21at 20:04; Start 11/12/21 at 19:45; Stop 11/13/21 at 05:43; Status DC Aspirin (Ecotrin) 325 mg 1X ONCE PO Last administered on 11/12/21at 21:13; Start 11/12/21 at 20:45; Stop 11/12/21 at 20:47; Status DC Enoxaparin Sodium (Lovenox 80mg Syringe) 80 mg 1X ONCE SQ Last administered on 11/12/21at 21:13; Start 11/12/21 at 20:45; Stop 11/12/21 at 20:47; Status DC Diltiazem HCl 125 mg/Dextrose 125 ml @ 5 mls/hr CONT PRN IV PER PROTOCOL Last administered on 11/13/21at 06:01; Start 11/13/21 at 05:45; Stop 11/13/21 at 11:17; Status DC Nystatin (Nystop) 1 santo BID TP Last administered on 11/16/21at 08:11; Start 11/13/21 at 09:00 Ondansetron HCl (Zofran) 4 mg PRN Q6HRS PRN IVP NAUSEA/VOMITING; Start 11/13/21 at 09:45 Al Hydroxide/Mg Hydroxide (Mylanta Plus Xs) 30 ml PRN Q3HRS PRN PO HEARTBURN / GAS; Start 11/13/21 at 09:45 Zolpidem Tartrate (Ambien) 5 mg PRN QHS PRN PO INSOMNIA, MAY REPEAT IN 1HR; Start 11/13/21 at 09:45 Morphine Sulfate (Morphine Sulfate) 2 mg PRN Q1HR PRN IV PAIN; Start 11/13/21 at 09:45 Acetaminophen/ Hydrocodone Bitart (Lortab 5/325) 1 tab PRN Q4HRS PRN PO MILD PAIN 1-3; Start 11/13/21 at 09:45 Acetaminophen (Tylenol) 650 mg PRN Q6HRS PRN PO Headaches, Temp > 101.5F; Start 11/13/21 at 09:45 Magnesium Hydroxide (Milk Of Magnesia) 2,400 mg PRN Q12HR PRN PO CONSTIPATION; Start 11/13/21 at 09:45 Heparin Sodium (Porcine) (Heparin Sodium) 5,000 unit Q12HR SQ ; Start 11/13/21 at 10:00; Status Cancel Losartan Potassium (Cozaar) 25 mg DAILY PO Last administered on 11/16/21at 08:03; Start 11/13/21 at 11:30 Potassium Chloride (Klor-Con) 20 meq 1X ONCE PO Last administered on 11/13/21at 12:35; Start 11/13/21 at 11:30; Stop 11/13/21 at 11:31; Status DC Digoxin (Lanoxin) 500 mcg 1X ONCE IV Last administered on 11/13/21at 12:50; Start 11/13/21 at 11:30; Stop 11/13/21 at 11:31; Status DC Apixaban (Eliquis) 5 mg BID PO Last administered on 11/16/21at 08:03; Start 11/13/21 at 11:30 Metoprolol Tartrate (Lopressor) 25 mg 1X ONCE PO Last administered on 11/13/21at 12:37; Start 11/13/21 at 11:30; Stop 11/13/21 at 11:31; Status DC Metoprolol Tartrate (Lopressor) 25 mg Q6HRS PO Last administered on 11/14/21at 06:14; Start 11/13/21 at 18:00; Stop 11/14/21 at 12:01; Status DC Ceftriaxone Sodium (Rocephin) 2 gm Q24H IVP Last administered on 11/15/21at 14: 59; Start 11/13/21 at 14:00; Stop 11/16/21 at 12:05; Status DC Multivitamins (Thera M Plus) 1 tab DAILY PO Last administered on 11/16/21at 08:03; Start 11/14/21 at 09:00 Ascorbic Acid (Vitamin C) 500 mg DAILY PO Last administered on 11/16/21at 08:03; Start 11/14/21 at 09:00 Lactobacillus Rhamnosus (Culturelle) 1 cap BID PO Last administered on 11/16/21at 08:03; Start 11/14/21 at 21:00 Digoxin (Lanoxin) 250 mcg 1X ONCE IV Last administered on 11/14/21at 12:32; Start 11/14/21 at 12:00; Stop 11/14/21 at 12:03; Status DC Metoprolol Succinate (Toprol Xl) 100 mg DAILY PO Last administered on 11/16/21at 08:03; Start 11/15/21 at 09:00 Metoprolol Succinate (Toprol Xl) 100 mg 1X ONCE PO Last administered on 11/14/21at 12:31; Start 11/14/21 at 12:00; Stop 11/14/21 at 12:03; Status DC Amoxicillin/ Clavulanate Potassium (Augmentin 875/ 125mg) 1 tab BID PO ; Start 11/16/21 at 12:30 Active Scripts Active Hydrocodone-Apap 5-325 (Hydrocodone Bit/Acetaminophen) 1 Tab Tablet 1 Tab PO PRN Q4HRS PRN 10 Days Losartan Potassium (Losartan Potassium) 25 Mg Tablet 25 Mg PO DAILY 30 Days Metoprolol Succinate ( Xl ) (Metoprolol Succinate) 100 Mg Tab.er.24h 100 Mg PO DAILY 30 Days Eliquis (Apixaban) 5 Mg Tablet 5 Mg PO BID 30 Days Amox Tr-K Clv 875-125 Mg Tab (Amoxicillin/Potassium Clav) 1 Each Tablet 1 Tab PO BID 7 Days Vitals/I & O Vital Sign - Last 24 Hours 11/15/21 11/15/21 11/15/21 11/15/21 15:00 18:48 20:10 22:20 Temp 99.8 99.0 98.8 99.8 99.0 98.8 Pulse 83 79 103 Resp 18 18 18 B/P (MAP) 151/85 (107) 138/63 (88) 140/76 (97) Pulse Ox 97 96 96 O2 Delivery Room Air Room Air Room Air Room Air 3/2011/16/21 11/16/21 11/16/21 02:50 06:33 08:00 08:03 Temp 98.3 98.4 98.3 98.4 Pulse 101 118 118 Resp 20 20 B/P (MAP) 127/90 (102) 143/74 (97) 143/74 Pulse Ox 93 96 O2 Delivery Room Air Room Air Room Air O2 Flow Rate 2.0 11/16/21 11/16/21 08:03 10:46 Temp 99.4 99.4 Pulse 118 99 Resp 18 B/P (MAP) 143/74 116/60 (78) Pulse Ox 94 O2 Delivery Room Air Intake and Output 11/15/21 11/15/21 11/16/21 15:00 23:00 07:00 Intake Total 450 ml 300 ml 0 ml Output Total 900 ml 400 ml Balance -450 ml 300 ml -400 ml Justifications for Admission General Conditions Poss tachycardia?: Yes Justification for admission: Patient has tachycardia (> 100 beats per minute) which is not readily corrected by appropriate treatment within 12 to 24 hours. Other Justification KOKO SANTANA MD Nov 16, 2021 12:58
--- NOTE | 2021-11-16 14:15 | NUR ---
REPORT GIVEN VIA TELEPHONE TO [facility]SING STA[facility]. TRANSPORTATIONS SET UP AT 1600. ANNAMARIA JASON AT BEDSIDE, AND IS AWARE OF DISCHARGE.
--- NOTE | 2021-11-16 14:41 | DS ---
DATE OF DISCHARGE: 11/16/2021 ADMISSION DIAGNOSES: Fall, weakness, new onset atrial fibrillation. DISCHARGE DIAGNOSES: Resolving falls, resolving weakness, atrial fibrillation, resolving lactic acidosis, resolving rhabdomyolysis, debility, Gram-negative bacteremia resolving (she grew out Proteus in the blood, it was sensitive to Augmentin). CONSULTS: Infectious Disease and Cardiology. PROCEDURES: None. HOSPITAL COURSE: The patient is a pleasant elderly female who presented with falls and weakness and new onset AFib with RVR. She was admitted. The above consults were obtained. She did grow out Proteus in her blood, which was sensitive to Augmentin. Today, I saw and examined her, she is at her baseline. She has been accepted at long-term. We will hope to discharge to skilled later today. DISPOSITION: care home. ACTIVITY: As tolerated. DIET: Low-sodium. DISCHARGE MEDICATIONS: Please see the MRAD. OTHER MEDICATIONS: Amoxicillin 875 b.i.d., Eliquis 5 b.i.d., hydrocodone 5 mg q. 6 p.r.n., , losartan 25 daily, and Toprol XL 100 p.o. daily. TOTAL TIME: Thirty-two minutes. JOHN/BIBIANA/POLI DR: JOHN/aruna TID: [id number]
[2021-11-16 15:00] VITALS: BP 107/57
--- NOTE | 2021-11-16 15:40 | NUR ---
PATIENT PICKED UP BY TRANSPORTATION PER WHEELCHAIR.
== END 2021-11-16 15:47 | DRG 871 ==
LOC: ER 17:58 → 6 SOUTH 18:42
PROVIDERS: ADMIT Internal Medicine; ATTEND Internal Medicine
DX: A41.50 Gram-negative sepsis, unspecified (principal); G93.41 Metabolic encephalopathy; I50.30 Unspecified diastolic (congestive) heart failure; M62.82 Rhabdomyolysis; B96.89 Other specified bacterial agents as the cause of diseases classified elsewhere; E11.65 Type 2 diabetes mellitus with hyperglycemia; H40.9 Unspecified glaucoma; H54.8 Legal blindness, as defined in USA; I11.0 Hypertensive heart disease with heart failure; I27.20 Pulmonary hypertension, unspecified; I48.91 Unspecified atrial fibrillation; L89.159 Pressure ulcer of sacral region, unspecified stage; Z82.49 Family history of ischemic heart disease and other diseases of the circulatory system; W01.0XXA Fall on same level from slipping, tripping and stumbling without subsequent striking against object, initial encounter; Y93.89 Activity, other specified; Y92.89 Other specified places as the place of occurrence of the external cause; Y99.8 Other external cause status; Z20.822 Contact with and (suspected) exposure to COVID-19
CPT/HCPCS: 36415; 70450; 71045; 72125; 73502; 73562; 80048; 80053; 80061; 81001; 82550; 83036; 83605; 83735; 83880; 84100; 84443; 84484; 85007; 85025; 87040; 87077; 87086; 87186; 93005; 93306; 96361; 96365; 96375; 96376; J0696; J1160; J1650; J3010; J3490; J7030; J7060; U0003; 97110-GP; 97116-GP; 97530-GO; 97530-GP; 97535-GO; 99285-25; C8929; G0378